=== PATIENT | female | born 1990 | race Caucasian/White ===

== ENCOUNTER → 2022-09-22 10:41 | Outpatient (BNVA) | payer OTHER, SELFPAY | PROVIDERS: Family Provider Nurse Practitioner; PCP Nurse Practitioner; Visit Provider Nurse Practitioner | DX: Z12.4 Encounter for screening for malignant neoplasm of cervix (principal) | CPT/HCPCS: 88175 ==

== ENCOUNTER → 2024-05-22 15:00 | Outpatient (BNVA) | payer OTHER, SELFPAY | PROVIDERS: Family Provider Nurse Practitioner; PCP Nurse Practitioner; Visit Provider Nurse Practitioner | DX: Z12.4 Encounter for screening for malignant neoplasm of cervix (principal) | CPT/HCPCS: 88175 ==

== ENCOUNTER → 2025-02-18 14:33 | Outpatient (BNVA) | payer OTHER, SELFPAY | PROVIDERS: Family Provider Nurse Practitioner; PCP Nurse Practitioner; Visit Provider Clinical Nurse Specialist Adult Health | DX: R10.11 Right upper quadrant pain (principal); R10.9 Unspecified abdominal pain | CPT/HCPCS: 81000; 87086 ==

== ENCOUNTER 2025-02-22 06:57 | Outpatient (CLI) | payer OTHER, SELFPAY ==
--- NOTE | 2025-02-22 07:00 | US_ITS ---
WS: [id number] Complete ABDOMINAL ULTRASOUND HISTORY: R10.9 - Unspecified abdominal pain COMPARISON: None available. Liver: 16.3 cm in length. Normal size liver and echogenicity. No bile duct dilatation or mass. Portal Vein: Normal hepatopetal flow with monophasic waveform. Gallbladder: Normally distended gallbladder with numerous stones present. No wall thickening or pericholecystic fluid. CBD: 0.4 cm Pancreas: Normal size and echogenicity. Right kidney: 10.6 cm x 3.9 x 3.8 cm. Cortex:0.9 cm. Mild cortical thinning of the kidney. No obstruction. No mass. Left kidney: 10.3 cm x 4.9 cm x 4.8 cm. Cortex: 1.1 cm. Normal size and echogenicity. No hydronephrosis or mass. Spleen: 10.7 cm. Normal size and echogenicity. Aorta and IVC: Unremarkable abdominal aorta and IVC. US/US abdomen complete* [id number] Impression: 1. Cholelithiasis without evidence for acute cholecystitis. 2. No hepatobiliary duct dilatation. 3. Mild cortical thinning RIGHT kidney. No obstruction.
== END 2025-02-22 06:58 | disposition home or self-care (01) ==
PROVIDERS: PCP Nurse Practitioner; Visit Provider Clinical Nurse Specialist Adult Health
DX: R10.9 Unspecified abdominal pain (principal); R10.11 Right upper quadrant pain; K80.20 Calculus of gallbladder without cholecystitis without obstruction; R93.421 Abnormal radiologic findings on diagnostic imaging of right kidney
CPT/HCPCS: 76700

== ENCOUNTER 2025-03-06 07:50 | Outpatient (CLI) | payer OTHER, SELFPAY ==
--- NOTE | 2025-03-06 08:00 | NM_ITS ---
WS: [id number] NUCLEAR MEDICINE HIDA SCAN WITH GALLBLADDER EJECTION FRACTION HISTORY: K80.20 - Calculus of gallbladder without cholecystitis wi... COMPARISON: Ultrasound 02/22/2025 TECHNIQUE: The patient was intravenously injected with 7.8 mCi of TC99m Mebrofenin. Immediate imaging over the right upper quadrant was followed by 5 minute image and additional images for a total of 60 minutes. Normal uptake of radiotracer throughout the liver. Activity identified in the gallbladder at 15 minutes and well distended by 60 minutes. Activity in the proximal small bowel was seen by 40 minutes. Good washout of the radiotracer from the liver by 60 minutes. The patient then drank 8 ounces of Ensure Plus. Ejection fraction at 60 minutes was 39%. Normal GB ejection fraction is 35-75%. Post fatty meal symptoms: None. NM/NM hepatobiliary w phar* [id number] IMPRESSION: 1. Normal HIDA scan. 2. Normal gallbladder ejection fraction.
== END 2025-03-06 07:51 | disposition home or self-care (01) ==
LOC: RAD 07:53
PROVIDERS: PCP Clinical Nurse Specialist Adult Health; Visit Provider Clinical Nurse Specialist Adult Health
DX: K80.20 Calculus of gallbladder without cholecystitis without obstruction (principal)
CPT/HCPCS: 78227; A9537

== ENCOUNTER 2025-03-13 07:55 | Outpatient (CLI) | payer OTHER, SELFPAY ==
[2025-03-13 08:35] LABS: Alanine Aminotransferase 22 U/L (0-33); Albumin Level 4.2 g/dL (3.5-5.2); Alkaline Phosphatase 81 U/L (35-105); Anion Gap 12.5 (5-19); Aspartate Amino Transferase 14 U/L (0-32); Blood Urea Nitrogen 13 mg/dL (6-20); Carbon Dioxide 25 mmol/L (22-29); Chloride 105 mmol/L (98-107); Globulin 2.9 g/dL (1.3-4.6); Glomerular Filtration Rate 72.6 mL/min (90-130); Glucose 93 mg/dL (65-115); Lipase 24 U/L (13-60); Osmolality Calculated 286 mOsm/kg (285-295); Potassium 4.5 mmol/L (3.5-5.1); Sodium 138 mmol/L (136-145); Total Bilirubin 0.6 mg/dL (0.15-1.2); Total Protein 7.1 g/dL (6.6-8.7)
== END 2025-03-13 07:56 | disposition home or self-care (01) ==
PROVIDERS: PCP Clinical Nurse Specialist Adult Health; Visit Provider Clinical Nurse Specialist Adult Health
DX: K80.20 Calculus of gallbladder without cholecystitis without obstruction (principal)
CPT/HCPCS: 36415; 80053; 83690

== ENCOUNTER 2025-04-10 22:45 | Emergency (ER) | payer OTHER, SELFPAY ==
[2025-04-10 22:50] VITALS: BP 137/98; PULSE 65; RESP 14; TEMP 36.4; O2SAT 99
--- NOTE | 2025-04-10 23:14 | W.ED.ABDPA2 ---
Documented by User: LAURA Caldwell 04/11/25 00:51 HPI - Abdominal Pain General: Chief Complaint: Abdominal Pain Stated Complaint: Gallbladder Pain surgery set 05/02/25 Time Seen by Provider: 04/10/25 22:58 Source: patient Mode of arrival: ambulatory Limitations: no limitations History of Present Illness: 35yo female presents with right sided abdominal pain that started after eating wings this evening and has been ongoing for the past 2 hours. Patient reports it typically only last about 30 minutes, but it has not let up yet. Patient reports that the pain to the back is stabbing in nature, but the pain in the front is dull. Patient states she she was diagnosed with gallstones a couple of months ago and is scheduled to have her gallbladder removed on 05/02/2025. Previous abdominal surgery of gastric sleeve. Patient denies any other concerns at this time. Associated Symptoms: Denies chills, diarrhea, fever(s) and vomiting Related Data Previous Rx's ?Medication ?Instructions ?Recorded hyoscyamine sulfate 0.125 mg 0.125 mg PO Q4H PRN dyspepsia #20 04/11/25 sublingual tablet (Oscimin SL) tabs Allergies Allergy/AdvReac Type Severity Reaction Status Date / Time No Known Allergies Allergy Verified 04/10/25 22:54 Review of Systems Const: Denies: fever(s), chills or body aches GI: Reports: abdominal pain; Denies: vomiting or diarrhea [facility] PFSH: Medical History (Updated 04/11/25 @ 01:39 by Jakob Schaefer DO) No significant medical problems Surgical History History of incisional hernia repair 2021 History of gastric restrictive surgery 2021 History of breast augmentation Silicone Family History Other Cancer Diabetes Hypertension Denies family history of CAD (coronary artery disease) Dementia Chronic kidney disease (CKD) Stroke Social History Smoking and tobacco/nicotine status: never used tobacco/nicotine Second hand smoke exposure: No Alcohol intake: current Alcohol intake frequency: holidays/special occasions only Substance/Drug Use: unknown Adopted: No Caregiver/support person: No Lives independently: Yes Household members: none Housing: House Marital status: Single Number of children: 0 service: No Current occupational status: employed Current occupation: [employer] Current occupational exposures/hazards: No Pets and animals: No Do you think of yourself as: Straight/Heterosexual Current gender identity: Female Physical Exam Const: COMMON NORMALS: no acute distress, average body habitus, patient oriented x3, healthy appearing and alert GENERAL APPEARANCE: cooperative ORIENTATION/CONSCIOUSNESS: Yes awake Chest: CHEST: Yes Symmetrical chest wall rise Resp: COMMON NORMALS: normal respiratory effort EFFORT & INSPECTION: Yes able to speak in complete sentences GI: COMMON NORMALS: Soft to palpation PALPATION: Yes Soft to palpation and Yes Tenderness to palpation present (GI) Details: RLQ and RUQ Extremity: COMMON NORMALS: full ROM Neuro: COMMON NORMALS: patient oriented x3 SENSORIUM/ORIENTATION: Yes alert Psych: COMMON NORMALS: cooperative Course Vital Signs: Vital signs: Vital Signs Temperature 97.5 F L 04/10/25 22:50 Pulse Rate 65 04/10/25 22:50 Respiratory Rate 14 04/10/25 22:50 Blood Pressure 137/98 04/10/25 22:50 Pulse Oximetry 99 04/10/25 22:50 Oxygen Delivery Me thod Room Air 04/10/25 22:50 MDM - Abdominal Pain Medical Decision Making 35yo female with known gallstones, history of gastric sleeve, and scheduled to have a cholecystectomy on 05/02/2025 presents with right sided abdominal pain that started within an hour after eating wings tonight. Patient states that the pain typically only last about 30 minutes, but has been ongoing for the past 2 hours. She states that it is sharp to her back area and dull to the front. Patient declines pain medication at this time. She denies any other concerns at this time. Patient is nontoxic in appearance. Vital signs are stable. No leukocytosis, white blood cell count is 7.43. No indication of anemia, hemoglobin is 13.2. No electrolyte abnormality noted. Creatinine is mildly elevated at 1.0 with a GFR of 63.9. Patient's previous GFR on 03/13/25 was 72.6. Elevated liver enzymes with an AST of 198, ALT of 144, and alkaline phosphatase of 118. Bilirubin is on the upper end of normal at 1.1. Patient's previous labs on 03/13/2025 were all well in the normal range. Lipase is elevated at 116 with a previous of 24 on 03/13/2025. UA is contaminated with greater than 100 epithelial cells. Dipstick is nitrite negative with 1+ leukocyte esterase. Microscopy shows 21-50 white blood cells and 4+ bacteria, but again contaminated. Discussed all findings with patient. Given the transaminitis as well as the elevated lipase, will proceed with imaging for evaluation of the common bile duct for concern of choledocholithiasis. Patient reported that her pain had finally subsided, but is agreeable to proceed with imaging for further evaluation. Dr. Schaefer to assume care due to change of shift. Awaiting imaging. Medical Records I reviewed the patient's medical records. Lab Data I reviewed the patient's lab results. 04/10/25 23:37 04/10/25 23:37 Labs/Radiology: Radiology Impressions Abdomen/Pelvis CT 04/11/25 00:03 IMPRESSION: 1. Right ovary 21 mm septated cyst, likely follicular with peripheral enhancement, perhaps reflecting a partially collapsed follicle, ultrasound could further characterize this. 2. Moderate to severe constipation. Laboratory Results WBC 7.43 10^3/uL (3.29-11.43) 04/10/25 23:37 RBC 4.40 10^6/uL (3.85-5.65) 04/10/25 23:37 Hgb 13.20 g/dL (11.27-16.99) 04/10/25 23:37 Hct 39.9 % (36-47) 04/10/25 23:37 MCV 90.7 fl (85-98) 04/10/25 23:37 MCH 30.0 pg (27-33) 04/10/25 23:37 MCHC 33.1 g/dL (30-55) 04/10/25 23:37 RDW 11.8 % (12.1-15.1) L 04/10/25 23:37 Plt Count 214 10^3/cmm (157-399) 04/10/25 23:37 MPV 9.3 fL (7.4-10.4) 04/10/25 23:37 Neut % (Auto) 71.1 % 04/10/25 23:37 Lymph % (Auto) 17.6 % 04/10/25 23:37 [place] % (Auto) 7.9 % 04/10/25 23:37 Eos % (Auto) 2.3 % 04/10/25 23:37 Baso % (Auto) 0.8 % 04/10/25 23:37 Neut # (Auto) 5.28 10^3/uL (1.8-7.7) 04/10/25 23:37 Lymph # (Auto) 1.3 10^3/uL (0.8-4.8) 04/10/25 23:37 [place] # (Auto) 0.6 10^3/uL (0.2-0.9) 04/10/25 23:37 Eos # (Auto) 0.2 10^3/uL (0.0-0.8) 04/10/25 23:37 Baso # (Auto) 0.1 10^3/uL (0.0-0.1) 04/10/25 23:37 Nucleated RBC % (auto) 0 % 04/10/25 23:37 Nucleated RBCs # 0.0 /100WBC 04/10/25 23:37 Sodium 138 mmol/L (136-145) 04/10/25 23:37 Potassium 3.8 mmol/L (3.5-5.1) 04/10/25 23:37 Chloride 103 mmol/L (98-107) 04/10/25 23:37 Carbon Dioxide 24 mmol/L (22-29) 04/10/25 23:37 Anion Gap 14.8 (5-19) 04/10/25 23:37 BUN 11 mg/dL (6-20) 04/10/25 23:37 Creatinine 1.0 mg/dL (0.5-0.9) H 04/10/25 23:37 GFR Calculation 63.9 mL/min (90-130) L 04/10/25 23:37 Glucose 100 mg/dL (65-115) 04/10/25 23:37 Calculated Osmolality 285 mOsm/kg (285-295) 04/10/25 23:37 Calcium 8.9 mg/dL (8.5-10.5) 04/10/25 23:37 Total Bilirubin 1.1 mg/dL (0.15-1.2) 04/10/25 23:37 AST 198 U/L (0-32) H 04/10/25 23:37 ALT 144 U/L (0-33) H 04/10/25 23:37 Alkaline Phosphatase 118 U/L (35-105) H 04/10/25 23:37 Total Protein 6.9 g/dL (6.6-8.7) 04/10/25 23:37 Albumin 4.0 g/dL (3.5-5.2) 04/10/25 23:37 Globulin 2.9 g/dL (1.3-4.6) 04/10/25 23:37 Lipase 116 U/L (13-60) H 04/10/25 23:37 HCG, Qual Negative (Negative) 04/10/25 23:37 Urine Color Dark yellow (Yellow) A 04/10/25 23:49 Urine Appearance Turbid (CLEAR) A 04/10/25 23:49 Urine pH 5.5 (5-7) 04/10/25 23:49 Ur Specific [place] 1.024 (1.005-1.030) 04/10/25 23:49 Urine Protein Trace (Negative) A 04/10/25 23:49 Urine Glucose (UA) Negative (Normal) 04/10/25 23:49 Urine Ketones 1+ (Negative) H 04/10/25 23:49 Urine Blood Negative (Negative) 04/10/25 23:49 Urine Nitrate Negative (Negative) 04/10/25 23:49 Urine Bilirubin Negative (Negative) 04/10/25 23:49 Urine Urobilinogen 1.0 mg/dL (Negative) 04/10/25 23:49 Ur Leukocyte Esterase 1+ (Negative) A 04/10/25 23:49 Urine RBC 0-2 /hpf (0-2) 04/10/25 23:49 Urine WBC 21-50 /hpf (0-5) H 04/10/25 23:49 Ur Squamous Epith Cells >100 /hpf (0-5) H 04/10/25 23:49 Amorphous Sediment Not Reportable 04/10/25 23:49 Urine Bacteria 4+ /hpf (NONE) H 04/10/25 23:49 Hyaline Casts 8.67 /lpf 04/10/25 23:49 All radiology interpretation(s) finalized by discharge Discharge Plan Discharge Patient Disposition: Home Clinical Impression: Recurrent biliary colic, Constipation Condition: Stable Prescriptions: New hyoscyamine sulfate [Oscimin SL] 0.125 mg tablet, sublingual 0.125 mg PO Q4H PRN (Reason: dyspepsia) Qty: 20 0RF Discharge Orders: Discharge ED (Routine); Ordered 04/11/25 Ordered By: Jakob Schaefer Referrals: Van Varner NP [Primary Care Provider, [facility]] Discharge Diet: Low Fat Discharge Activity: Increase activity as tolerated Patient Instructions: Constipation (ED), Biliary Colic (ED), Clear Liquid Diet (ED), Abdominal Pain (ED), Opioid Safety, Pain Management, Patient Portal & Rob Instructions Activity Restrictions/Additional Instructions: Recommend you try MiraLAX 2-3 times daily until soft daily stool. Clear liquid diet for the next 24 hours and advance as tolerated. Please call your surgeon and let them know that your symptoms are worsening to determine if they would like to have you follow-up sooner. follow-up with your primary care provider return to the ER if symptoms worsen. Print Language: Japanese Coding Level of Care Code ED Telephone Instrument Supervisor for Chg Fwd Documented by User: Jakob Schaefer DO 04/11/25 01:43 HPI - Abdominal Pain General: Chief Complaint: Abdominal Pain Stated Complaint: Gallbladder Pain surgery set 05/02/25 Time Seen by Provider: 04/10/25 22:58 Related Data Previous Rx's ?Medication ?Instructions ?Recorded hyoscyamine sulfate 0.125 mg 0.125 mg PO Q4H PRN dyspepsia #20 04/11/25 sublingual tablet (Oscimin SL) tabs Allergies Allergy/AdvReac Type Severity Reaction Status Date / Time No Known Allergies Allergy Verified 04/10/25 22:54 PFSH ED PFSH: Medical History (Updated 04/11/25 @ 01:39 by Jakob Schaefer DO) No significant medical problems Surgical History History of incisional hernia repair 2021 History of gastric restrictive surgery 2021 History of breast augmentation Silicone Family History Other Cancer Diabetes Hypertension Denies family history of CAD (coronary artery disease) Dementia Chronic kidney disease (CKD) Stroke Social History Smoking and tobacco/nicotine status: never used tobacco/nicotine Second hand smoke exposure: No Alcohol intake: current Alcohol intake frequency: holidays/special occasions only Substance/Drug Use: unknown Adopted: No Caregiver/support person: No Lives independently: Yes Household members: none Housing: House Marital status: Single Number of children: 0 service: No Current occupational status: employed Current occupation: [employer] Current occupational exposures/hazards: No Pets and animals: No Do you think of yourself as: Straight/Heterosexual Current gender identity: Female Course Vital Signs: Vital signs: Vital Signs Temperature 97.5 F L 04/10/25 22:50 Pulse Rate 65 04/10/25 22:50 Respiratory Rate 14 04/10/25 22:50 Blood Pressure 137/98 04/10/25 22:50 Pulse Oximetry 99 04/10/25 22:50 Oxygen Delivery Me thod Room Air 04/10/25 22:50 MDM - Abdominal Pain Medical Decision Making 35yo female with known gallstones, history of gastric sleeve, and scheduled to have a cholecystectomy on 05/02/2025 presents with right sided abdominal pain that started within an hour after eating wings tonight. Patient states that the pain typically only last about 30 minutes, but has been ongoing for the past 2 hours. She states that it is sharp to her back area and dull to the front. Patient declines pain medication at this time. She denies any other concerns at this time. Patient is nontoxic in appearance. Vital signs are stable. No leukocytosis, white blood cell count is 7.43. No indication of anemia, hemoglobin is 13.2. No electrolyte abnormality noted. Creatinine is mildly elevated at 1.0 with a GFR of 63.9. Patient's previous GFR on 03/13/25 was 72.6. Elevated liver enzymes with an AST of 198, ALT of 144, and alkaline phosphatase of 118. Bilirubin is on the upper end of normal at 1.1. Patient's previous labs on 03/13/2025 were all well in the normal range. Lipase is elevated at 116 with a previous of 24 on 03/13/2025. UA is contaminated with greater than 100 epithelial cells. Dipstick is nitrite negative with 1+ leukocyte esterase. Microscopy shows 21-50 white blood cells and 4+ bacteria, but again contaminated. Discussed all findings with patient. Given the transaminitis as well as the elevated lipase, will proceed with imaging for evaluation of the common bile duct for concern of choledocholithiasis. Patient reported that her pain had finally subsided, but is agreeable to proceed with imaging for further evaluation. Dr. Schaefer to assume care due to change of shift. Awaiting imaging. Patient's care was assumed. Patient's labs were reviewed along with CT imaging. There was no significant acute findings on CT. It does show moderate to severe constipation which I discussed with her supportive care. Also shows a right ovary that she can follow-up on as needed. Her pain did resolve. I will prescribe her hyoscyamine sublingual to help with the discomfort if it returns. Recommend she calls her surgeon make them aware of her worsening symptoms and follows with her primary care provider return to the ER as needed. Lab Data 04/10/25 23:37 04/10/25 23:37 Labs/Radiology: Radiology Impressions Abdomen/Pelvis CT 04/11/25 00:03 IMPRESSION: 1. Right ovary 21 mm septated cyst, likely follicular with peripheral enhancement, perhaps reflecting a partially collapsed follicle, ultrasound could further characterize this. 2. Moderate to severe constipation. Laboratory Results WBC 7.43 10^3/uL (3.29-11.43) 04/10/25 23:37 RBC 4.40 10^6/uL (3.85-5.65) 04/10/25 23:37 Hgb 13.20 g/dL (11.27-16.99) 04/10/25 23:37 Hct 39.9 % (36-47) 04/10/25 23:37 MCV 90.7 fl (85-98) 04/10/25 23:37 MCH 30.0 pg (27-33) 04/10/25 23:37 MCHC 33.1 g/dL (30-55) 04/10/25 23:37 RDW 11.8 % (12.1-15.1) L 04/10/25 23:37 Plt Count 214 10^3/cmm (157-399) 04/10/25 23:37 MPV 9.3 fL (7.4-10.4) 04/10/25 23:37 Neut % (Auto) 71.1 % 04/10/25 23:37 Lymph % (Auto) 17.6 % 04/10/25 23:37 [place] % (Auto) 7.9 % 04/10/25 23:37 Eos % (Auto) 2.3 % 04/10/25 23:37 Baso % (Auto) 0.8 % 04/10/25 23:37 Neut # (Auto) 5.28 10^3/uL (1.8-7.7) 04/10/25 23:37 Lymph # (Auto) 1.3 10^3/uL (0.8-4.8) 04/10/25 23:37 [place] # (Auto) 0.6 10^3/uL (0.2-0.9) 04/10/25 23:37 Eos # (Auto) 0.2 10^3/uL (0.0-0.8) 04/10/25 23:37 Baso # (Auto) 0.1 10^3/uL (0.0-0.1) 04/10/25 23:37 Nucleated RBC % (auto) 0 % 04/10/25 23:37 Nucleated RBCs # 0.0 /100WBC 04/10/25 23:37 Sodium 138 mmol/L (136-145) 04/10/25 23:37 Potassium 3.8 mmol/L (3.5-5.1) 04/10/25 23:37 Chloride 103 mmol/L (98-107) 04/10/25 23:37 Carbon Dioxide 24 mmol/L (22-29) 04/10/25 23:37 Anion Gap 14.8 (5-19) 04/10/25 23:37 BUN 11 mg/dL (6-20) 04/10/25 23:37 Creatinine 1.0 mg/dL (0.5-0.9) H 04/10/25 23:37 GFR Calculation 63.9 mL/min (90-130) L 04/10/25 23:37 Glucose 100 mg/dL (65-115) 04/10/25 23:37 Calculated Osmolality 285 mOsm/kg (285-295) 04/10/25 23:37 Calcium 8.9 mg/dL (8.5-10.5) 04/10/25 23:37 Total Bilirubin 1.1 mg/dL (0.15-1.2) 04/10/25 23:37 AST 198 U/L (0-32) H 04/10/25 23:37 ALT 144 U/L (0-33) H 04/10/25 23:37 Alkaline Phosphatase 118 U/L (35-105) H 04/10/25 23:37 Total Protein 6.9 g/dL (6.6-8.7) 04/10/25 23:37 Albumin 4.0 g/dL (3.5-5.2) 04/10/25 23:37 Globulin 2.9 g/dL (1.3-4.6) 04/10/25 23:37 Lipase 116 U/L (13-60) H 04/10/25 23:37 HCG, Qual Negative (Negative) 04/10/25 23:37 Urine Color Dark yellow (Yellow) A 04/10/25 23:49 Urine Appearance Turbid (CLEAR) A 04/10/25 23:49 Urine pH 5.5 (5-7) 04/10/25 23:49 Ur Specific [place] 1.024 (1.005-1.030) 04/10/25 23:49 Urine Protein Trace (Negative) A 04/10/25 23:49 Urine Glucose (UA) Negative (Normal) 04/10/25 23:49 Urine Ketones 1+ (Negative) H 04/10/25 23:49 Urine Blood Negative (Negative) 04/10/25 23:49 Urine Nitrate Negative (Negative) 04/10/25 23:49 Urine Bilirubin Negative (Negative) 04/10/25 23:49 Urine Urobilinogen 1.0 mg/dL (Negative) 04/10/25 23:49 Ur Leukocyte Esterase 1+ (Negative) A 04/10/25 23:49 Urine RBC 0-2 /hpf (0-2) 04/10/25 23:49 Urine WBC 21-50 /hpf (0-5) H 04/10/25 23:49 Ur Squamous Epith Cells >100 /hpf (0-5) H 04/10/25 23:49 Amorphous Sediment Not Reportable 04/10/25 23:49 Urine Bacteria 4+ /hpf (NONE) H 04/10/25 23:49 Hyaline Casts 8.67 /lpf 04/10/25 23:49 All radiology interpretation(s) finalized by discharge Discharge Plan Discharge Patient Disposition: Home Clinical Impression: Recurrent biliary colic, Constipation Condition: Stable Prescriptions: New hyoscyamine sulfate [Oscimin SL] 0.125 mg tablet, sublingual 0.125 mg PO Q4H PRN (Reason: dyspepsia) Qty: 20 0RF Discharge Orders: Discharge ED (Routine); Ordered 04/11/25 Ordered By: Jakob Schaefer Referrals: Van Varner NP [Primary Care Provider, [facility]] Discharge Diet: Low Fat Discharge Activity: Increase activity as tolerated Patient Instructions: Constipation (ED), Biliary Colic (ED), Clear Liquid Diet (ED), Abdominal Pain (ED), Opioid Safety, Pain Management, Patient Portal & Rob Instructions Activity Restrictions/Additional Instructions: Recommend you try MiraLAX 2-3 times daily until soft daily stool. Clear liquid diet for the next 24 hours and advance as tolerated. Please call your surgeon and let them know that your symptoms are worsening to determine if they would like to have you follow-up sooner. follow-up with your primary care provider return to the ER if symptoms worsen. Print Language: Japanese Coding Level of Care Code ED Telephone Instrument Supervisor for Teddy Barcenas
[2025-04-10 23:43] LABS: Hematocrit 39.9 % (36-47); Hemoglobin 13.20 g/dL (11.27-16.99); Mean Corpuscular HGB Conc 33.1 g/dL (30-55); Mean Corpuscular Hemoglobin 30.0 pg (27-33); Mean Corpuscular Volume 90.7 fl (85-98); Nucleated Red Blood Cells % 0 %; Platelet Count 214 10^3/cmm (157-399); Red Blood Count 4.40 10^6/uL (3.85-5.65); White Blood Count 7.43 10^3/uL (3.29-11.43)
[2025-04-10 23:54] LABS: Add Urine Microscopic? NO
[2025-04-10 23:57] LABS: HCG, Serum Qual Negative (Negative)
[2025-04-11] LABS: Alanine Aminotransferase 144 U/L (0-33); Albumin Level 4.0 g/dL (3.5-5.2); Alkaline Phosphatase 118 U/L (35-105); Anion Gap 14.8 (5-19); Aspartate Amino Transferase 198 U/L (0-32); Blood Urea Nitrogen 11 mg/dL (6-20); Calcium 8.9 mg/dL (8.5-10.5); Carbon Dioxide 24 mmol/L (22-29); Chloride 103 mmol/L (98-107); Globulin 2.9 g/dL (1.3-4.6); Glucose 100 mg/dL (65-115); Lipase 116 U/L (13-60); Osmolality Calculated 285 mOsm/kg (285-295); Potassium 3.8 mmol/L (3.5-5.1); Sodium 138 mmol/L (136-145); Total Protein 6.9 g/dL (6.6-8.7)
--- NOTE | 2025-04-11 00:03 | CTR_ITS ---
PROCEDURE INFORMATION: Exam: CT Abdomen And Pelvis With Contrast Exam date and time: 04/11/2025 1:02 AM Age: 35 years old Clinical indication: Abdominal pain; Other: Ruq; Additional info: Ruq abd pain, transaminitis, elevated lipase TECHNIQUE: Imaging protocol: Computed tomography of the abdomen and pelvis with contrast. Radiation optimization: All CT scans at this facility use at least one of these dose optimization techniques: automated exposure control; mA and/or kV adjustment per patient size (includes targeted exams where dose is matched to clinical indication); or iterative reconstruction. Contrast material: OMNI 350; Contrast volume: 100 ml; Contrast route: INTRAVENOUS (IV); COMPARISON: NM hepatobiliary w phar* [id number] 03/06/2025 7:55 AM RADIATION DOSE METRICS: Total DLP (mGy-cm): 370.48 FINDINGS: Liver: Normal. No mass. Gallbladder and biliary ducts: Normal. No calcified stones. No ductal dilation. Pancreas: Normal. No ductal dilation. Spleen: Normal. No splenomegaly. Adrenal glands: Normal. No mass. Kidneys and ureters: Normal. No hydronephrosis. Stomach and bowel: Moderate to severe constipation. Appendix: No evidence of appendicitis. Intraperitoneal space: Unremarkable. No free air. No significant fluid collection. Vasculature: Unremarkable. No abdominal aortic aneurysm. Lymph nodes: Unremarkable. No enlarged lymph nodes. Urinary bladder: Unremarkable as visualized. Reproductive: Right ovary 21 mm septated cyst, likely follicular with peripheral enhancement, perhaps reflecting a partially collapsed follicle, ultrasound could further characterize this. Bones/joints: Unremarkable. No acute fracture. Soft tissues: Unremarkable. CT/CT abdomen pelvis w con* [id number] IMPRESSION: 1. Right ovary 21 mm septated cyst, likely follicular with peripheral enhancement, perhaps reflecting a partially collapsed follicle, ultrasound could further characterize this. 2. Moderate to severe constipation.
[2025-04-11 00:17] LABS: Glucose Urine UA Negative (Normal); Nitrate Urine Negative (Negative); Specific Gravity, Urine 1.024 (1.005-1.030)
[2025-04-11 00:18] LABS: UA Slide Review UA Slide Review Perf
[2025-04-11 00:25] LABS: Charge for UA Resulting for Rev
[2025-04-11] MEDS: iohexol 350 mg/mL 500 mL Btl (per mL) IV (01:04)
[2025-04-11 01:51] VITALS: BP 128/65; PULSE 68; RESP 16; O2SAT 99
== END 2025-04-11 01:53 | disposition home or self-care (01) ==
PROVIDERS: Emergency Provider Nurse Practitioner; PCP Clinical Nurse Specialist Adult Health
DX: K80.50 Calculus of bile duct without cholangitis or cholecystitis without obstruction (principal); K59.00 Constipation, unspecified
CPT/HCPCS: 36415; 74177; 80053; 81003; 83690; 84703; 85025; 99284